=== PATIENT | male | born 1985 | race Caucasian/White ===

== ENCOUNTER 2017-03-16 08:08 | Observation (INO) | payer MEDICAID ==
--- NOTE | 2017-03-16 08:34 | EDM.PDOC ---
ED HPI GENERAL MEDICAL PROBLEM - General Chief Complaint: General Stated Complaint: seizure activity Time Seen by Provider: 03/16/17 08:10 Source of Information: Reports: Family History Limitations: Reports: No Limitations - History of Present Illness INITIAL COMMENTS - FREE TEXT/NARRATIVE: According to father patient has been drinking alcohol for several years now. He has alcoholic hepatitis and has had seizures in the past. Pt had an episode of seizure today morning around 7 PM. Father claims he has not drunk any alcohol for past 2 days. He had seizure today morning and bit his tongue too. Presently in the emergency room, patient is awake and alert. He is very aware of his surrounding. He claims he drinks 1 to 1 1/2 bottle of hard liquor daily.C /o pain and spasms in his arms. 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 He was transferred to [facility] in january of 2016. He was diagnosed with alcoholic hepatitis and reactive elevation of Ferritin. Not on any medications at this time. Onset: Today Onset Date: 03/16/17 Onset Time: 07:00 fingers Pain Score (Numeric/FACES): 4 - Related Data Allergies Allergy/AdvReac Type Severity Reaction Status Date / Time No Known Allergies Allergy Verified 03/16/17 08:26 Home Meds: Home Meds NK [No Known Home Meds] 03/16/17 [History] ED ROS GENERAL - Review of Systems Review Of Systems: See Below Constitutional: Denies: Fever, Chills, Malaise, Weakness HEENT: Denies: Rhinitis, Throat Pain, Throat Swelling Respiratory: Denies: Shortness of Breath, Wheezing, Cough, Sputum Cardiovascular: Denies: Chest Pain, Lightheadedness GI/Abdominal: Denies: Abdominal Pain, Constipation, Diarrhea, Hematochezia, Melena, Nausea, Vomiting : Reports: Discharge. Denies: Dysuria, Flank Pain Musculoskeletal: Reports: Joint Pain. Denies: Back Pain, Leg Pain, Foot Pain, Joint Swelling Skin: Denies: Jaundice, Bruising, Pruritis, Rash Neurological: Denies: Confusion, Dizziness, Headache, Numbness, Paresthesia, Tingling, Tremors, Difficulty Walking, Weakness, Change in Speech, Gait Disturbance ED EXAM, GENERAL - Physical Exam Exam: See Below Exam Limited By: No Limitations General Appearance: Alert, WD/WN, No Apparent Distress, Other (No apparent confusion. Alert and answering questions appropriately) Eye Exam: Bilateral Eye: EOMI, PERRL Ears: Normal External Exam, Normal Canal, Hearing Grossly Normal, Normal TMs Nose: Normal Inspection, Normal Mucosa, No Blood Throat/Mouth: Normal Inspection, Normal Lips, Normal Teeth, Normal Gums, Normal Oropharynx, Normal Voice, No Airway Compromise, Other (tongue bitten, but no acitive bleed at this time.) Head: Atraumatic, Normocephalic Neck: Normal Inspection, Supple, Non-Tender, Full Range of Motion Respiratory/Chest: No Respiratory Distress, Lungs Clear, Normal Breath Sounds, No Accessory Muscle Use, Chest Non-Tender Cardiovascular: Normal Peripheral Pulses, Regular Rate, Rhythm, No Edema, No Gallop, No JVD, No Murmur, No Rub GI/Abdominal: Normal Bowel Sounds, Soft, Non-Tender, No Organomegaly, No Distention, No Abnormal Bruit, No Mass Extremities: Normal Inspection, Normal Range of Motion, Non-Tender, Normal Capillary Refill, No Pedal Edema Neurological: Alert, Oriented, CN II-XII Intact, Normal Cognition, Normal Gait, Normal Reflexes, No Motor/Sensory Deficits Psychiatric: Normal Affect, Normal Mood Skin Exam: Warm, Intact EKG INTERPRETATION EKG Date: 03/16/17 Time: 09:30 Rhythm: NSR Rate (Beats/Min): 112 Steele: Normal P-Wave: Present QRS: Normal ST-T: Normal QT: Normal EKG Interpretation Comments: sinus tachycardia Course - Vital Signs Text/Narrative:: Pt has been very stable in the emergency room. Since he has bee n in the emergency room he is alert and responding appropriately. He might have had a alcoholic withdrawal seizure at home. his ETOH level is zero, for a person who almost binges every other day. His vitals are stable. Lab work done today shows following abnormalities.: his White count is elevated at 19K with neutros of 87 %, this could be reactive elevation. He is asymptomatic. Has not cough, diarrhea, abdominal pain, fever or chills. His chest Xray appears normal. Could be mild dehydration too causing this. His sodium is low at 133, Potassium is 2.8 and chloride of 82, Magnesium of 0.7 and phosphorous of 1.5. His creat is 2.06 with BUN of 19.All these abnormal results could be related to alcoholism and poor nutritional status and dehydration secondary to it. Plan is to correct electrolyte balance. His LFT shows bili of 2.2 and AST of 205 and ALT of 105, which are secondary to chronic alcoholism, and he has alcoholic hepatitis. The cause of his episode of seizure is multifactorial: Alcohol withdrawal, Hypokalemia, Hypomagnesemia. His potassium is down to 2.8, his EKG does not show any acute changes. Last Recorded V/S: Last Vital Signs Temp 98.9 F 03/16/17 08:21 Pulse 123 H 03/16/17 08:45 Resp BP 144/86 H 03/16/17 08:45 Pulse Ox 98 03/16/17 08:45 - Orders/Labs/Meds Orders: Active Orders 24 hr Category Date Time Status Patient Status [ADT] Routine ADT 03/16/17 10:01 Ordered Bedrest Bathroom Privileges [RC] ASDIRECTED Care 03/16/17 10:01 Ordered Cardiac Monitoring [RC] CONTINUOUS Care 03/16/17 10:04 Ordered EKG Documentation Completion [RC] ASDIRECTED Care 03/16/17 09:33 Ordered Height and Weight [RC] UPON Care 03/16/17 10:01 Ordered Intake and Output [RC] QSHIFT Care 03/16/17 10:04 Ordered Oxygen Therapy [RC] PRN Care 03/16/17 10:01 Ordered VTE/DVT Education [RC] Per Unit Routine Care 03/16/17 10:01 Ordered Vital Signs [RC] Q4H Care 03/16/17 10:01 Ordered Regular Diet [DIET] Diet 03/16/17 Lunch Ordered Chest 2V [CR] Stat Exams 03/16/17 09:33 Ordered CBC WITH AUTO DIFF [HEME] Routine Lab 03/17/17 07:00 Ordered COMPREHENSIVE METABOLIC PN,CMP [CHEM] Routine Lab 03/17/17 08:00 Ordered DRUG SCREEN, URINE [URCHEM] Stat Lab 03/16/17 08:34 Ordered MAGNESIUM [CHEM] Routine Lab 03/17/17 07:00 Ordered POTASSIUM,K [CHEM] Routine Lab 03/17/17 07:00 Ordered UA W/MICROSCOPIC [URIN] Stat Lab 03/16/17 08:34 Ordered Magnesium Sulfate/Water [Magnesium Sulfate 2 GM in Med 03/16/17 10:11 Ordered Water 50 ML] 2 gm Premix Bag 1 bag IV ONETIME Pantoprazole [ProTONIX IV] Med 03/16/17 10:15 Ordered 40 mg IV DAILY Sodium Chloride 0.9% [Saline Flush] Med 03/16/17 10:01 Ordered 10 ml FLUSH ASDIRECTED PRN Sodium Chloride 0.9% with KCl [Normal Saline with 40 Med 03/16/17 10:15 Ordered mEq KCl] 1,000 ml IV ASDIRECTED Thiamine [Vitamin B-1] Med 03/16/17 10:09 Once 100 mg IM ONETIME ONE Peripheral IV Insertion Adult [OM.PC] Routine Oth 03/16/17 10:01 Ordered Resuscitation Status Routine Resus Stat 03/16/17 10:01 Ordered Medication Orders Pantoprazole Sodium (Protonix Iv) 40 mg IV DAILY RAF Sodium Chloride (Saline Flush) 10 ml FLUSH ASDIRECTED PRN PRN Reason: Keep Vein Open Labs: Laboratory Tests 03/16/17 03/16/17 03/16/17 Range/Units 08:50 08:50 08:50 WBC 19.1 H (4.0-11.0) K/uL RBC 5.52 (4.50-6.50) M/uL Hgb 17.2 D (13.0-18.0) g/dL Hct 48.3 D (40.0-54.0) % MCV 88 (76-96) fL MCH 31.2 (27.0-32.0) pg MCHC 35.6 H (31.0-35.0) g/dL RDW 13.1 (11.0-16.0) % Plt Count 131 L D (150-400) K/uL MPV 11.6 H (6.0-10.0) fL Neut % (Auto) 86.4 H (45.0-70.0) % Lymph % (Auto) 6.1 L (20.0-40.0) % [place] % (Auto) 7.1 (3.0-10.0) % Eos % (Auto) 0.1 L (1.0-5.0) % Baso % (Auto) 0.3 (0.0-0.5) % Neut # (Auto) 16.49 H (2.00-7.50) K/uL Lymph # (Auto) 1.17 L (1.50-4.00) K/uL [place] # (Auto) 1.35 H (0.20-0.80) K/uL Eos # (Auto) 0.01 L (0.04-0.40) K/uL Baso # (Auto) 0.06 (0.02-0.10) K/uL PT (9.0-11.5) sec INR (1.0-3.5) Sodium 133 L (136-145) mmol/L Potassium 2.8 L* D (3.5-5.1) mmol/L Chloride 82 L* (98-107) mmol/L Carbon Dioxide 33.3 H D (21.0-32.0) mmol/L Anion Gap 20.5 H (5.0-15.0) mmol/L BUN 19 D (8-26) mg/dL Creatinine 2.06 H D (0.70-1.30) mg/dL Est Cr Clr Drug Dosing 57.03 mL/min Estimated GFR (MDRD) 38 L (>60) MLS/MIN BUN/Creatinine Ratio 9.2 (6-25) Glucose 173 H D (74-100) mg/dL Calcium 9.4 (8.5-10.1) mg/dL Phosphorus 1.5 L (2.5-4.9) mg/dL Magnesium 0.7 L (1.8-2.4) mg/dL Total Bilirubin 2.2 H D (0.0-1.0) mg/dL AST 205 H (15-37) U/L ALT 105 H (12-78) U/L Alkaline Phosphatase 75 (46-116) U/L Total Protein 8.7 H (6.4-8.2) g/dL Albumin 4.5 (3.4-5.0) g/dL Globulin 4.2 (2.2-4.2) g/dL Albumin/Globulin Ratio 1.1 (0.8-2.0) Ethyl Alcohol 0.0 (0.0-0.0) mg/dL 03/16/17 Range/Units 08:50 WBC (4.0-11.0) K/uL RBC (4.50-6.50) M/uL Hgb (13.0-18.0) g/dL Hct (40.0-54.0) % MCV (76-96) fL MCH (27.0-32.0) pg MCHC (31.0-35.0) g/dL RDW (11.0-16.0) % Plt Count (150-400) K/uL MPV (6.0-10.0) fL Neut % (Auto) (45.0-70.0) % Lymph % (Auto) (20.0-40.0) % [place] % (Auto) (3.0-10.0) % Eos % (Auto) (1.0-5.0) % Baso % (Auto) (0.0-0.5) % Neut # (Auto) (2.00-7.50) K/uL Lymph # (Auto) (1.50-4.00) K/uL [place] # (Auto) (0.20-0.80) K/uL Eos # (Auto) (0.04-0.40) K/uL Baso # (Auto) (0.02-0.10) K/uL PT 12.7 H D (9.0-11.5) sec INR 1.3 D (1.0-3.5) Sodium (136-145) mmol/L Potassium (3.5-5.1) mmol/L Chloride (98-107) mmol/L Carbon Dioxide (21.0-32.0) mmol/L Anion Gap (5.0-15.0) mmol/L BUN (8-26) mg/dL Creatinine (0.70-1.30) mg/dL Est Cr Clr Drug Dosing mL/min Estimated GFR (MDRD) (>60) MLS/MIN BUN/Creatinine Ratio (6-25) Glucose (74-100) mg/dL Calcium (8.5-10.1) mg/dL Phosphorus (2.5-4.9) mg/dL Magnesium (1.8-2.4) mg/dL Total Bilirubin (0.0-1.0) mg/dL AST (15-37) U/L ALT (12-78) U/L Alkaline Phosphatase (46-116) U/L Total Protein (6.4-8.2) g/dL Albumin (3.4-5.0) g/dL Globulin (2.2-4.2) g/dL Albumin/Globulin Ratio (0.8-2.0) Ethyl Alcohol (0.0-0.0) mg/dL Meds: Medications Generic Name Dose Route Start Last Admin Trade Name Emily PRN Reason Stop Dose Admin Pantoprazole Sodium 40 mg 03/16/17 10:15 Protonix Iv IV DAILY RAF Sodium Chloride 10 ml 03/16/17 10:01 Saline Flush FLUSH ASDIRECTED PRN Keep Vein Open Departure - Departure Time of Disposition: 10:00 Disposition: Refer to Observation Condition: Fair Clinical Impression: Alcoholic hepatitis, Hypokalemia, Hyponatremia, Hypomagnesemia, Hypophosphatemia, Decreased renal function, Seizure - Discharge Information Instructions: Alcohol Use Disorder, Chemical Dependency Referrals: PCP,None [Primary Care Provider] - Forms: ED Department Discharge Additional Instructions: Librium - Problem List & Annotations (1) Alcoholic hepatitis SNOMED Code(s): 683609290 Code(s): K70.10 - ALCOHOLIC HEPATITIS WITHOUT ASCITES Status: Acute Current Visit: Yes (2) Decreased renal function Status: Acute Current Visit: Yes (3) Hypokalemia SNOMED Code(s): 37030474 Code(s): E87.6 - HYPOKALEMIA Status: Acute Current Visit: Yes (4) Hypomagnesemia SNOMED Code(s): 011000635 Code(s): E83.42 - HYPOMAGNESEMIA Status: Acute Current Visit: Yes (5) Hyponatremia SNOMED Code(s): 92712257 Code(s): E87.1 - HYPO-OSMOLALITY AND HYPONATREMIA Status: Acute Current Visit: Yes (6) Hypophosphatemia SNOMED Code(s): 7010536 Code(s): E83.39 - OTHER DISORDERS OF PHOSPHORUS METABOLISM Status: Acute Current Visit: Yes (7) Seizure SNOMED Code(s): 36467097 Code(s): R56.9 - UNSPECIFIED CONVULSIONS Status: Acute Priority: High Current Visit: Yes Onset Date: 12/31/15 - Problem List Review Problem List Initiated/Reviewed/Updated: Yes - My Orders Last 24 Hours: My Active Orders 03/16/17 08:34 DRUG SCREEN, URINE [URCHEM] Stat UA W/MICROSCOPIC [URIN] Stat 03/16/17 09:33 EKG Documentation Completion [RC] ASDIRECTED Chest 2V [CR] Stat 03/16/17 10:01 Patient Status [ADT] Routine Bedrest Bathroom Privileges [RC] ASDIRECTED Height and Weight [RC] UPON Oxygen Therapy [RC] PRN VTE/DVT Education [RC] Per Unit Routine Vital Signs [RC] Q4H Sodium Chloride 0.9% [Saline Flush] 10 ml FLUSH ASDIRECTED PRN Peripheral IV Insertion Adult [OM.PC] Routine Resuscitation Status Routine 03/16/17 10:04 Cardiac Monitoring [RC] CONTINUOUS Intake and Output [RC] QSHIFT 03/16/17 10:09 Thiamine [Vitamin B-1] 100 mg IM ONETIME ONE 03/16/17 10:11 Magnesium Sulfate/Water [Magnesium Sulfate 2 GM in Water 50 ML] 2 gm Premix Bag 1 bag IV ONETIME 03/16/17 10:15 Pantoprazole [ProTONIX IV] 40 mg IV DAILY Sodium Chloride 0.9% with KCl [Normal Saline with 40 mEq KCl] 1,000 ml IV ASDIRECTED 03/16/17 Lunch Regular Diet [DIET] 03/17/17 07:00 CBC WITH AUTO DIFF [HEME] Routine MAGNESIUM [CHEM] Routine POTASSIUM,K [CHEM] Routine 03/17/17 08:00 COMPREHENSIVE METABOLIC PN,CMP [CHEM] Routine - Assessment/Plan Last 24 Hours: My Active Orders 03/16/17 08:34 DRUG SCREEN, URINE [URCHEM] Stat UA W/MICROSCOPIC [URIN] Stat 03/16/17 09:33 EKG Documentation Completion [RC] ASDIRECTED Chest 2V [CR] Stat 03/16/17 10:01 Patient Status [ADT] Routine Bedrest Bathroom Privileges [RC] ASDIRECTED Height and Weight [RC] UPON Oxygen Therapy [RC] PRN VTE/DVT Education [RC] Per Unit Routine Vital Signs [RC] Q4H Sodium Chloride 0.9% [Saline Flush] 10 ml FLUSH ASDIRECTED PRN Peripheral IV Insertion Adult [OM.PC] Routine Resuscitation Status Routine 03/16/17 10:04 Cardiac Monitoring [RC] CONTINUOUS Intake and Output [RC] QSHIFT 03/16/17 10:09 Thiamine [Vitamin B-1] 100 mg IM ONETIME ONE 03/16/17 10:11 Magnesium Sulfate/Water [Magnesium Sulfate 2 GM in Water 50 ML] 2 gm Premix Bag 1 bag IV ONETIME 03/16/17 10:15 Pantoprazole [ProTONIX IV] 40 mg IV DAILY Sodium Chloride 0.9% with KCl [Normal Saline with 40 mEq KCl] 1,000 ml IV ASDIRECTED 03/16/17 Lunch Regular Diet [DIET] 03/17/17 07:00 CBC WITH AUTO DIFF [HEME] Routine MAGNESIUM [CHEM] Routine POTASSIUM,K [CHEM] Routine 03/17/17 08:00 COMPREHENSIVE METABOLIC PN,CMP [CHEM] Routine Assessment:: Seizure Multifactorial Hypokalemia, hyponatremia, Hypomagnesemia and hypophosphatemia Alcoholic hepatitis Plan: The episode of seizure patient had today might be alcohol withdrawal, but he is not having any agitation or confusion in the emergency room. Also he is not having active alcohol tremors. He is alert and oriented. This seizure could be multifactorial due to asso electrolyte abnormalities. Plan is to admit patient for observation. Keep him on alcohol withdrawal protocol. Will correct his electrolyte abnormalities. Started patient on normal saline with 40meq KCL at 125/hr. Also have him on IV magnesium 1gm IV BID. Phosphorus should correct by itself gradually with correction of other electrolytes. He does have altered renal functions, probably dehydration related, With IV hydration the renal function should improve. Will have him on cardiac monitoring. Followup with CBC,CMP, Mag and PO4 level in morning.
[2017-03-16] MEDS ORDERED: Thiamine 200 MG/2 ML MDV IM ONE (10:09)
[2017-03-16] MEDS ORDERED: Magnesium Sulfate/Water 2 GM in Premix Bag 1 BAG IV ONE (10:11)
[2017-03-16] MEDS ORDERED: LORazepam 1 MG Tab ONE (11:09)
[2017-03-16] MEDS: Pantoprazole 40 MG Vial IV SCH (11:12)
[2017-03-16] MEDS: LORazepam 2 MG/ML MDV IVPUSH PRN ×2 (11:13→12:27)
[2017-03-16] MEDS: Sodium Chloride 0.9% with KCl 1,000 ML IV SCH ×2 (12:29→20:00)
[2017-03-16] MEDS: Sodium Chloride 0.9% 10 ML Syringe FLUSH PRN (12:30)
[2017-03-16] MEDS ORDERED: Azithromycin 500 MG Tab PO ONE (13:04)
[2017-03-16] MEDS: Lidocaine 2% Viscous Solution 15 ML Cup PO ONE ×2 (13:11→16:02)
[2017-03-16] MEDS ORDERED: Lidocaine 2% Viscous Solution 15 ML Cup PO ONE (15:56)
[2017-03-16] MEDS ORDERED: Lidocaine 2% Viscous Solution 15 ML Cup ONE (16:02)
[2017-03-17] MEDS: LORazepam 2 MG/ML MDV IVPUSH PRN (03:01)
[2017-03-17] MEDS: Sodium Chloride 0.9% with KCl 1,000 ML IV SCH (04:01)
[2017-03-17] MEDS: Pantoprazole 40 MG Vial IV SCH (07:50)
[2017-03-17] MEDS: Sodium Chloride 0.9% 10 ML Syringe FLUSH PRN (07:50)
[2017-03-17 07:57] VITALS: BP 126/75
[2017-03-17] MEDS ORDERED: Potassium Chloride 10 MEQ Tab.ER PO SCH (08:45)
--- NOTE | 2017-03-17 09:21 | CR ---
DATE OF SERVICE: 03/16/17 CLINICAL DATA: elevated white count PA AND LATERAL CHEST: The heart size is normal. The lungs are clear. No pneumothorax. No pleural effusions. No areas of consolidation. The exam is otherwise negative. IMPRESSION: No evidence of acute intrathoracic disease. [id number] MTDD
--- NOTE | 2017-03-17 11:40 | PCM.DCSUM1 ---
Discharge Summary - Hospital Course Free Text/Narrative:: Pt was admitted post seizure, apparently pt drink 1 and a half bottle of alcohol every other day, was admitted to monitor in hospital environment and also to make sure he does no thave any more seizures or alcohol withdrawl. Pt also had several electorlyte abnormalities on admission. He had hyponatremia, hypokalmeia, hypomagnesemia and hypophosphatemia. So pt was admitted for replenishment of his elcetrolyte too at the same time. Pt recevie IV normal saline with 40meq KCL at 125cc.hr. And Magnesium sulfacte 1gm Iv BID. Pt ws palcedd on Cardiac monitoring and on Ciwwass scoring for alcohol withdrawl. HE basically has needed 4 mg of ativan over 24 hrs. Today patient claims he feels fine, energetic. Also it is 5 days since the last alcohol consumption. His labs are reassuring. His sodium is normalat 135, MAgnesium has improved from 0.7 to 1.5, his potassium is still low at 2.7. His creatinine is back to nromal form 2.06 to 1.05. 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 he calims he will stop drinking alcohol. He is not going through severe withdrawl and it is day 5 since last alcohol consumption. Plan is to discharge patient today as he has been feeling good and is clinically stable and has not had severe withdrawls or seizure. I am sending him home on: Librium 5mg po TID for 1 wk. Kdur 10 MEQ po BID for 1wk MAgnesium oxide 400mg PO BID for 1 wk Omeprazole 40mg PO daily for 1 month for alcoholic gastritis Zithromax 250mg Daily for 4 days Advised to return to clinic in 1 wk for lab work and recheck. Brief History: Pt is alcoholic and had seizure at home on 03/16/17 morning, workup does show alcoholic hepatitis with multiple electrolyte abnormalities. Pt was admitted for correcting his electrolyte abnormalities, and close monitor for seizure and alcohol withdrawal.Kindly see H&P for details. - Discharge Data Discharge Date: 03/17/17 Discharge Disposition: Home, Self-Care 01 Condition: Good - Discharge Diagnosis/Problem(s) (1) Alcoholic hepatitis SNOMED Code(s): 963424513 ICD Code: K70.10 - ALCOHOLIC HEPATITIS WITHOUT ASCITES Status: Acute Current Visit: Yes (2) Decreased renal function Status: Acute Current Visit: Yes (3) Hypokalemia SNOMED Code(s): 84089034 ICD Code: E87.6 - HYPOKALEMIA Status: Acute Current Visit: Yes (4) Hypomagnesemia SNOMED Code(s): 333492381 ICD Code: E83.42 - HYPOMAGNESEMIA Status: Acute Current Visit: Yes (5) Hyponatremia SNOMED Code(s): 50400052 ICD Code: E87.1 - HYPO-OSMOLALITY AND HYPONATREMIA Status: Acute Current Visit: Yes (6) Hypophosphatemia SNOMED Code(s): 9709632 ICD Code: E83.39 - OTHER DISORDERS OF PHOSPHORUS METABOLISM Status: Acute Current Visit: Yes (7) Seizure SNOMED Code(s): 94067210 ICD Code: R56.9 - UNSPECIFIED CONVULSIONS Status: Acute Priority: High Current Visit: Yes Onset Date: 12/31/15 - Patient Instructions Diet: Regular Diet as Tolerated, No Alcoholic Beverages Fluid Restriction: 1500 mL Driving: [address] Today Showering/Bathing: November Shower - Discharge Plan Prescriptions/Med Rec: Azithromycin [Zithromax] 250 mg PO DAILY 4 Days #4 tablet Magnesium Oxide 400 mg PO BID 7 Days #14 tab Omeprazole 40 mg PO DAILY 30 Days #30 cap.sr Potassium Chloride [Klor-Con 10] 10 meq PO BIDMEALS 7 Days #14 tab.er Home Medications: Home Meds Azithromycin [Zithromax] 250 mg PO DAILY 4 Days #4 tablet 03/17/17 [Rx] Magnesium Oxide 400 mg PO BID 7 Days #14 tab 03/17/17 [Rx] Omeprazole 40 mg PO DAILY 30 Days #30 cap.sr 03/17/17 [Rx] Potassium Chloride [Klor-Con 10] 10 meq PO BIDMEALS 7 Days #14 tab.er 03/17/17 [ Rx] Patient Handouts: Alcohol Use Disorder, Chemical Dependency, Seizure, Adult Forms: ED Department Discharge Referrals: PCP,None [Family Provider] - - Discharge Summary/Plan Comment DC Time >30 min.: Yes Discharge Summary/Plan Comment: I am sending him home on: Librium 5mg po TID for 1 wk. Kdur 10 MEQ po BID for 1wk MAgnesium oxide 400mg PO BID for 1 wk Omeprazole 40mg PO daily for 1 month for alcoholic gastritis Zithromax 250mg Daily for 4 days Advised to return to clinic in 1 wk for lab work and recheck. - General Info Date of Service: 03/17/17 Subjective Update: Pt claims that he feel fine today. Has been feeding well. Has not had any seizure and also has no tremors and agitation during the hospital stay. He does c/o mild epigastirc discomfort. No bloody stools or moreno. - Review of Systems General: Denies: Fever, Weakness HEENT: Denies: Headaches, Sinus Congestion, Sore Throat, Visual Changes Pulmonary: Denies: Sputum, Hemoptysis Cardiovascular: Denies: Chest Pain, Lightheadedness Gastrointestinal: Reports: Abdominal Pain (epigatric), Flatus. Denies: Diarrhea , Hematochezia, Melena, Nausea, Vomiting Genitourinary: Denies: Hematuria, Retention Musculoskeletal: Denies: Joint Pain Neurological: Denies: Confusion, Dizziness, Headache, Numbness, Tingling, Tremors, Difficulty Walking, Change in Speech, Gait Disturbance Psychiatric: Denies: Confusion, Depression, Anxiety - Patient Data Vitals - Most Recent: Last Vital Signs Temp 98.2 F 03/17/17 07:56 Pulse 97 03/17/17 07:56 Resp 18 03/17/17 07:56 BP 126/75 03/17/17 07:56 Pulse Ox 95 03/17/17 07:56 Weight - Most Recent: 94.166 kg I&O - Last 24 hours: Intake & Output 03/16/17 03/17/17 03/17/17 22:59 06:59 14:59 Intake Total 1290 2180 Output Total 350 900 Balance 940 1280 Lab Results - Last 24 hrs: Laboratory Results - last 24 hr 03/16/17 03/16/17 03/17/17 Range/Units 14:50 14:50 07:20 WBC 8.9 D (4.0-11.0) K/uL RBC 5.13 (4.50-6.50) M/uL Hgb 16.0 (13.0-18.0) g/dL Hct 45.6 (40.0-54.0) % MCV 89 (76-96) fL MCH 31.2 (27.0-32.0) pg MCHC 35.1 H (31.0-35.0) g/dL RDW 13.0 (11.0-16.0) % Plt Count 84 L D (150-400) K/uL MPV 12.4 H (6.0-10.0) fL Neut % (Auto) 76.2 H (45.0-70.0) % Lymph % (Auto) 14.4 L (20.0-40.0) % [place] % (Auto) 9.0 (3.0-10.0) % Eos % (Auto) 0.2 L (1.0-5.0) % Baso % (Auto) 0.2 (0.0-0.5) % Neut # (Auto) 6.74 (2.00-7.50) K/uL Lymph # (Auto) 1.27 L (1.50-4.00) K/uL [place] # (Auto) 0.80 (0.20-0.80) K/uL Eos # (Auto) 0.02 L (0.04-0.40) K/uL Baso # (Auto) 0.02 (0.02-0.10) K/uL Sodium (136-145) mmol/L Potassium Chloride (98-107) mmol/L Carbon Dioxide (21.0-32.0) mmol/L Anion Gap (5.0-15.0) mmol/L BUN (8-26) mg/dL Creatinine (0.70-1.30) mg/dL Est Cr Clr Drug Dosing mL/min Estimated GFR (MDRD) (>60) MLS/MIN BUN/Creatinine Ratio (6-25) Glucose (74-100) mg/dL Calcium (8.5-10.1) mg/dL Magnesium (1.8-2.4) mg/dL Total Bilirubin (0.0-1.0) mg/dL AST (15-37) U/L ALT (12-78) U/L Alkaline Phosphatase (46-116) U/L Total Protein (6.4-8.2) g/dL Albumin (3.4-5.0) g/dL Globulin (2.2-4.2) g/dL Albumin/Globulin Ratio (0.8-2.0) Urine Color Yellow Urine Appearance Clear (CLEAR) Urine pH 5.5 (5.0-8.0) Ur Specific [place] 1.015 (1.003-1.030) Urine Protein 100 H (NEGATIVE) mg/dL Urine Glucose (UA) Negative (NEGATIVE) mg/dL Urine Ketones 40 H (NEGATIVE) mg/dL Urine Occult Blood Moderate H (NEGATIVE) Urine Nitrite Negative (NEGATIVE) Urine Bilirubin Moderate H (NEGATIVE) Urine Urobilinogen 0.2 (0.2-1.0) E.U./dL Ur Leukocyte Esterase Negative (NEGATIVE) Urine RBC 5-10 H /HPF Urine WBC Not seen /HPF Ur Squamous Epith Cells Rare /HPF Urine Bacteria Rare /HPF Urine Opiates Screen Negative (NEGATIVE) Ur Oxycodone Screen Negative (NEGATIVE) Ur Barbiturates Screen Negative (NEGATIVE) Ur Tricyclics Screen Negative (NEGATIVE) Ur Phencyclidine Scrn Negative (NEGATIVE) Ur Amphetamine Screen Negative (NEGATIVE) U Methamphetamines Scrn Negative (NEGATIVE) U Benzodiazepines Scrn Negative (NEGATIVE) U Cocaine Metab Screen Negative (NEGATIVE) U Marijuana (THC) Screen Negative (NEGATIVE) 03/17/17 03/17/17 Range/Units 07:30 07:30 WBC (4.0-11.0) K/uL RBC (4.50-6.50) M/uL Hgb (13.0-18.0) g/dL Hct (40.0-54.0) % MCV (76-96) fL MCH (27.0-32.0) pg MCHC (31.0-35.0) g/dL RDW (11.0-16.0) % Plt Count (150-400) K/uL MPV (6.0-10.0) fL Neut % (Auto) (45.0-70.0) % Lymph % (Auto) (20.0-40.0) % [place] % (Auto) (3.0-10.0) % Eos % (Auto) (1.0-5.0) % Baso % (Auto) (0.0-0.5) % Neut # (Auto) (2.00-7.50) K/uL Lymph # (Auto) (1.50-4.00) K/uL [place] # (Auto) (0.20-0.80) K/uL Eos # (Auto) (0.04-0.40) K/uL Baso # (Auto) (0.02-0.10) K/uL Sodium 135 L (136-145) mmol/L Potassium Cancelled 2.7 L* Chloride 94 L (98-107) mmol/L Carbon Dioxide 34.2 H (21.0-32.0) mmol/L Anion Gap 9.5 (5.0-15.0) mmol/L BUN 13 D (8-26) mg/dL Creatinine 1.05 D (0.70-1.30) mg/dL Est Cr Clr Drug Dosing 111.88 mL/min Estimated GFR (MDRD) > 60 (>60) MLS/MIN BUN/Creatinine Ratio 12.4 (6-25) Glucose 95 D (74-100) mg/dL Calcium 8.0 L (8.5-10.1) mg/dL Magnesium 1.5 L D (1.8-2.4) mg/dL Total Bilirubin 2.1 H (0.0-1.0) mg/dL AST 225 H (15-37) U/L ALT 94 H (12-78) U/L Alkaline Phosphatase 62 (46-116) U/L Total Protein 7.3 (6.4-8.2) g/dL Albumin 3.6 (3.4-5.0) g/dL Globulin 3.7 (2.2-4.2) g/dL Albumin/Globulin Ratio 1.0 (0.8-2.0) Urine Color Urine Appearance (CLEAR) Urine pH (5.0-8.0) Ur Specific [place] (1.003-1.030) Urine Protein (NEGATIVE) mg/dL Urine Glucose (UA) (NEGATIVE) mg/dL Urine Ketones (NEGATIVE) mg/dL Urine Occult Blood (NEGATIVE) Urine Nitrite (NEGATIVE) Urine Bilirubin (NEGATIVE) Urine Urobilinogen (0.2-1.0) E.U./dL Ur Leukocyte Esterase (NEGATIVE) Urine RBC /HPF Urine WBC /HPF Ur Squamous Epith Cells /HPF Urine Bacteria /HPF Urine Opiates Screen (NEGATIVE) Ur Oxycodone Screen (NEGATIVE) Ur Barbiturates Screen (NEGATIVE) Ur Tricyclics Screen (NEGATIVE) Ur Phencyclidine Scrn (NEGATIVE) Ur Amphetamine Screen (NEGATIVE) U Methamphetamines Scrn (NEGATIVE) U Benzodiazepines Scrn (NEGATIVE) U Cocaine Metab Screen (NEGATIVE) U Marijuana (THC) Screen (NEGATIVE) Med Orders - Current: Current Medications Potassium Chloride/Sodium Chloride (Normal Saline With 40 Meq Kcl) 1,000 mls @ 125 mls/hr IV ASDIRECTED [facility] Last Admin: 03/17/17 04:01 Dose: 125 mls/hr Magnesium Sulfate/Dextrose 1 (gm/ Premix) 100 mls @ 50 mls/hr IV Q1H [facility] Stop: 03/17/17 12:14 Last Admin: 03/17/17 08:53 Dose: 50 mls/hr Lorazepam (Ativan) 0 mg IVPUSH Q4H PRN; Protocol PRN Reason: Withdrawal Symptoms Last Admin: 03/17/17 03:01 Dose: 1 mg Pantoprazole Sodium (Protonix Iv) 40 mg IV DAILY [facility] Last Admin: 03/17/17 07:50 Dose: 40 mg Potassium Chloride (Klor-Con 10) 10 meq PO BIDMEALS [facility] Last Admin: 03/17/17 08:56 Dose: 10 meq Sodium Chloride (Saline Flush) 10 ml FLUSH ASDIRECTED PRN PRN Reason: Keep Vein Open Last Admin: 03/17/17 07:50 Dose: 10 ml Discontinued Medications Azithromycin (Zithromax) 500 mg PO ONETIME ONE Stop: 03/16/17 13:05 Last Admin: 03/16/17 13:16 Dose: 500 mg Magnesium Sulfate 2 gm/ Premix 50 mls @ 25 mls/hr IV ONETIME ONE Stop: 03/16/17 12:10 Last Admin: 03/16/17 11:17 Dose: Not Given Lidocaine HCl (Xylocaine 2% Viscous) 15 ml PO ONETIME ONE Stop: 03/16/17 13:05 Last Admin: 03/16/17 16:02 Dose: 15 ml Lidocaine HCl (Xylocaine 2% Viscous) 15 ml PO ONETIME ONE Stop: 03/16/17 15:57 Last Admin: 03/17/17 07:08 Dose: Not Given Lidocaine HCl (Xylocaine 2% Viscous) Confirm Administered Dose 15 ml .ROUTE .STK -MED ONE Stop: 03/16/17 16:03 Last Admin: 03/17/17 07:07 Dose: Not Given Lorazepam (Ativan) Confirm Administered Dose 1 mg .ROUTE .STK-MED ONE Stop: 03/16/17 11:10 Last Admin: 03/16/17 11:17 Dose: Not Given Thiamine HCl (Vitamin B-1) 100 mg IM ONETIME ONE Stop: 03/16/17 10:10 Last Admin: 03/16/17 11:12 Dose: 100 mg - Exam General: Reports: Alert, Oriented HEENT: Reports: Pupils Equal, Pupils Reactive, EOMI, Mucous Membr. Moist/[place] Neck: Reports: Supple Lungs: Reports: Clear to Auscultation, Normal Respiratory Effort Cardiovascular: Reports: Regular Rate, Regular Rhythm GI/Abdominal Exam: Normal Bowel Sounds, Soft, No Organomegaly, No Distention, No Abnormal Bruit, No Mass, Pelvis Stable, Tender (mild epigastirc discomfort). No: Guarding, Rigid, Rebound Back Exam: Reports: Normal Inspection, Full Range of Motion Extremities: Normal Inspection, Normal Range of Motion, Non-Tender, No Pedal Edema, Normal Capillary Refill *Q Meaningful Use (DIS) - VTE *Q VTE Criteria *Q: - Stroke *Q Stroke Criteria *Q: - AMI *Q AMI Criteria *Q:
== END 2017-03-17 12:15 | disposition home or self-care (01) ==
LOC: LB.ED 08:08 → LB.MS 10:00
PROVIDERS: ADMIT Family Medicine; ATTEND Family Medicine
DX: K70.10 Alcoholic hepatitis without ascites (principal); R56.9 Unspecified convulsions; N28.89 Other specified disorders of kidney and ureter; E87.6 Hypokalemia; E83.42 Hypomagnesemia; E87.1 Hypo-osmolality and hyponatremia; E83.39 Other disorders of phosphorus metabolism
CPT/HCPCS: 36415; 71020; 80053; 80307; 81001; 83735; 84100; 85025; 85610; 93005; 96365; 96366; 96367; 96372; 96374; 96375; 96376; 99285; A9270; C9113; G0378; G0480; J2060; J3411; J3475; J3480; J7050

== ENCOUNTER 2017-12-10 07:31 | Observation (INO) | payer MEDICAID ==
[2017-12-10] MEDS ORDERED: LORazepam 2 MG/ML SDV IVPUSH ONE (07:50)
[2017-12-10] MEDS ORDERED: Pantoprazole 40 MG Vial IVPUSH ONE (07:50)
[2017-12-10] MEDS ORDERED: Pantoprazole 40 MG Vial ONE (08:05)
[2017-12-10] MEDS ORDERED: LORazepam 2 MG/ML SDV ONE (08:05)
--- NOTE | 2017-12-10 08:28 | EDM.PDOC ---
ED HPI GENERAL MEDICAL PROBLEM - General Chief Complaint: Gastrointestinal Problem Stated Complaint: throwing up Time Seen by Provider: 12/10/17 08:00 Source of Information: Reports: Patient History Limitations: Reports: No Limitations - History of Present Illness INITIAL COMMENTS - FREE TEXT/NARRATIVE: pt is a 31 year old male who presents to emergency room as he beltran been vomiting and cannot keep any food down since last night. Apparently patient has chronic history of alcohol abuse. He claims he was clean for the past 3 month, and for past 2 days has been drinking a lot. He has drunk 1.75 litres of Vodka over past 24 hrs and has been having epigastric pain with pain radiating to his mid back. He did try drinking Vodka this morning to see if this help, and started to vomit. The pain is dull and constant and at times get sharp. No abdominal bloating, no heart prado or dyspepsia.Also has been vomiting all night , vomitus basically has been clear.. No hemetemisis or moreno. Pt claims he feels shaky and weak. no fever or chills. No cough, wheezing, chest pain or shortness of breath. No other complaints. Onset Date: 12/09/17 Location: Reports: Abdomen Quality: Reports: Ache Severity: Moderate Improves with: Reports: None Worsens with: Reports: None Associated Symptoms: Reports: Nausea/Vomiting, Weakness. Denies: Confusion, Chest Pain, Cough, Fever/Chills, Headaches, Rash, Seizure, Shortness of Breath, Syncope Bilat Flank Pain Score (Numeric/FACES): 7 - Related Data Allergies Allergy/AdvReac Type Severity Reaction Status Date / Time No Known Allergies Allergy Verified 12/10/17 07:40 Home Meds: Home Meds traZODone HCl [Trazodone HCl] 50 mg PO QPM 12/10/17 [History] Past Medical History Respiratory History: Reports: Asthma Psychiatric History: Reports: Addiction, Anxiety - Past Surgical History HEENT Surgical History: Reports: EDWAR Social & Family History - Caffeine Use Caffeine Use: Reports: Energy Drinks, Soda ED ROS GENERAL - Review of Systems Review Of Systems: See Below Constitutional: Reports: Weakness. Denies: Fever, Chills, Fatigue HEENT: Denies: Rhinitis, Throat Pain, Throat Swelling, Vision Change Respiratory: Denies: Shortness of Breath, Pleuritic Chest Pain, Cough, Sputum Cardiovascular: Denies: Chest Pain, Lightheadedness Endocrine: Denies: Fatigue GI/Abdominal: Reports: Abdominal Pain, Flatus, Nausea, Vomiting. Denies: Black Stool, Constipation, Diarrhea, Hematemesis, Hematochezia, Melena : Denies: Dysuria, Frequency Musculoskeletal: Reports: Back Pain (midback). Denies: Joint Pain, Joint Swelling Skin: Denies: Bruising, Pruritis, Rash ED EXAM, GENERAL - Physical Exam Exam: See Below Exam Limited By: No Limitations General Appearance: Alert, WD/WN, No Apparent Distress, Anxious Eye Exam: Bilateral Eye: EOMI, PERRL Ears: Normal External Exam, Normal Canal, Hearing Grossly Normal, Normal TMs Ear Exam: Bilateral Ear: Auricle Normal, Canal Normal, TM normal Nose: Normal Inspection, Normal Mucosa, No Blood Throat/Mouth: Normal Inspection, Normal Lips, Normal Teeth, Normal Gums, Normal Oropharynx, Normal Voice, No Airway Compromise Head: Atraumatic, Normocephalic Neck: Normal Inspection, Supple, Non-Tender, Full Range of Motion Respiratory/Chest: No Respiratory Distress, Lungs Clear, Normal Breath Sounds, No Accessory Muscle Use, Chest Non-Tender Cardiovascular: Normal Peripheral Pulses, No Edema, No Gallop, No JVD, No Murmur , No Rub, Tachycardia Peripheral Pulses: 2+: Carotid (L), Carotid (R), Radial (L), Radial (R) GI/Abdominal: Normal Bowel Sounds, Soft, No Organomegaly, Tender (tender in the epigastric region. No gaurding or rebound). No: Guarding, Rigid, Rebound Back Exam: Normal Inspection, Full Range of Motion, NT Extremities: Normal Inspection, Normal Range of Motion, Non-Tender, Normal Capillary Refill, No Pedal Edema Neurological: Alert, Oriented, CN II-XII Intact, Normal Cognition, Normal Gait, Normal Reflexes Psychiatric: Normal Affect, Anxious Skin Exam: Warm, Intact Course - Vital Signs Text/Narrative:: Pt is her in the emergency room wretching and vomiting. HE did receive zofran 4mg. Also is very anxious, he did receive Ativan 1mg IV. HE was started on litre of Normal saline bolus. His CBC shows white count of 15.9, which appears like inflammatory change form his vomiting. His hemoglobin is stable at 16.1. His creat is 1.69 could be secondary to alcoholic dehydration. His AST is 101. ETOH is 10, Lipase is normal. Pt reassured that he has acute alcoholic gastritis from excessive alcohol consumption. Pt has had issues with alcohol abuse all his life. He does want to go in for inpatient Detox program. Plan is to admit patinet for observation and hydration him well and also start him on Banana bag iv. I have reassured patient that when he is clinically stable , we will arrange for him to be in Alcohol detox program. Last Recorded V/S: Last Vital Signs Temp 99.1 F 12/10/17 08:39 Pulse 122 H 12/10/17 08:39 Resp 20 12/10/17 08:39 BP 131/80 12/10/17 08:39 Pulse Ox 95 12/10/17 08:39 - Orders/Labs/Meds Orders: Active Orders 24 hr Category Date Time Status Patient Status [ADT] Routine ADT 12/10/17 08:56 Ordered Bedrest Bathroom Privileges [RC] ASDIRECTED Care 12/10/17 08:56 Ordered Height and Weight [RC] UPON Care 12/10/17 08:56 Ordered Intake and Output [RC] QSHIFT Care 12/10/17 08:57 Ordered Oxygen Therapy [RC] PRN Care 12/10/17 08:56 Ordered VTE/DVT Education [RC] Per Unit Routine Care 12/10/17 08:56 Ordered Vital Signs [RC] Q4H Care 12/10/17 08:56 Ordered Nothing per Oral Now Diet [DIET] Diet 12/10/17 Breakfast Ordered BASIC METABOLIC PANEL,BMP [CHEM] Routine Lab 12/10/17 16:00 Ordered DRUG SCREEN, URINE [URCHEM] Stat Lab 12/10/17 08:22 Ordered MVI, Adult with Vitamin K [Infuvite Adult] 10 ml Med 12/10/17 08:45 Active Thiamine [Vitamin B-1] 100 mg Folic Acid 1 mg Magnesium Sulfate [Magnesium Sulfate 50%] 3 gm Sodium Chloride 0.9% [Normal Saline] 1,000 ml IV ASDIRECTED Ondansetron [Zofran] Med 12/10/17 08:56 Ordered 4 mg IV Q6H PRN Pantoprazole [ProTONIX] Med 12/11/17 07:00 Ordered 40 mg PO ACBREAKFAST Sodium Chloride 0.9% [Normal Saline] 1,000 ml Med 12/10/17 08:45 Active IV ASDIRECTED Sucralfate [Carafate] Med 12/10/17 11:00 Ordered 1 gm PO TIDAC Resuscitation Status Routine Resus Stat 12/10/17 08:56 Ordered Medication Orders Multivitamins/Minerals 10 ml/Thiamine HCl 100 mg/ Folic Acid 1 mg/ Magnesium Sulfate 3 gm/ Sodium Chloride 1,017.2 mls @ 150 mls/hr IV ASDIRECTED RAF Last Admin: 12/10/17 08:55 Dose: 150 mls/hr Sodium Chloride (Normal Saline) 1,000 mls @ 999 mls/hr IV ASDIRECTED RAF Ondansetron HCl (Zofran) 4 mg IV Q6H PRN PRN Reason: Nausea/Vomiting Labs: Laboratory Tests 12/10/17 12/10/17 12/10/17 Range/Units 08:20 08:20 08:21 WBC 15.9 H D (4.0-11.0) K/uL RBC 5.19 (4.50-6.50) M/uL Hgb 16.1 (13.0-18.0) g/dL Hct 46.0 (40.0-54.0) % MCV 89 (76-96) fL MCH 31.0 (27.0-32.0) pg MCHC 35.0 (31.0-35.0) g/dL RDW 12.7 (11.0-16.0) % Plt Count 203 D (150-400) K/uL MPV 10.1 H (6.0-10.0) fL Neut % (Auto) 89.5 H (45.0-70.0) % Lymph % (Auto) 5.3 L (20.0-40.0) % [place] % (Auto) 5.0 (3.0-10.0) % Eos % (Auto) 0.0 L (1.0-5.0) % Baso % (Auto) 0.2 (0.0-0.5) % Neut # (Auto) 14.22 H (2.00-7.50) K/uL Lymph # (Auto) 0.85 L (1.50-4.00) K/uL [place] # (Auto) 0.79 (0.20-0.80) K/uL Eos # (Auto) 0.00 L (0.04-0.40) K/uL Baso # (Auto) 0.03 (0.02-0.10) K/uL Sodium 138 (136-145) mmol/L Potassium 3.1 L (3.5-5.1) mmol/L Chloride 88 L* (98-107) mmol/L Carbon Dioxide 17.3 L D (21.0-32.0) mmol/L Anion Gap 35.8 H (5.0-15.0) mmol/L BUN 14 D (8-26) mg/dL Creatinine 1.69 H D (0.70-1.30) mg/dL Est Cr Clr Drug Dosing TNP Estimated GFR (MDRD) 48 L (>60) MLS/MIN BUN/Creatinine Ratio 8.3 (6-25) Glucose 153 H (74-100) mg/dL Calcium 9.2 (8.5-10.1) mg/dL Total Bilirubin 2.3 H (0.0-1.0) mg/dL AST 101 H (15-37) U/L ALT 62 (12-78) U/L Alkaline Phosphatase 65 (46-116) U/L Total Protein 9.1 H (6.4-8.2) g/dL Albumin 4.8 (3.4-5.0) g/dL Globulin 4.3 H (2.2-4.2) g/dL Albumin/Globulin Ratio 1.1 (0.8-2.0) Lipase 152 D (73-393) U/L TSH, Ultra Sensitive (0.358-3.740) uIU/mL Ethyl Alcohol 10.0 H (0.0-0.0) mg/dL 12/10/17 Range/Units 08:22 WBC (4.0-11.0) K/uL RBC (4.50-6.50) M/uL Hgb (13.0-18.0) g/dL Hct (40.0-54.0) % MCV (76-96) fL MCH (27.0-32.0) pg MCHC (31.0-35.0) g/dL RDW (11.0-16.0) % Plt Count (150-400) K/uL MPV (6.0-10.0) fL Neut % (Auto) (45.0-70.0) % Lymph % (Auto) (20.0-40.0) % [place] % (Auto) (3.0-10.0) % Eos % (Auto) (1.0-5.0) % Baso % (Auto) (0.0-0.5) % Neut # (Auto) (2.00-7.50) K/uL Lymph # (Auto) (1.50-4.00) K/uL [place] # (Auto) (0.20-0.80) K/uL Eos # (Auto) (0.04-0.40) K/uL Baso # (Auto) (0.02-0.10) K/uL Sodium (136-145) mmol/L Potassium (3.5-5.1) mmol/L Chloride (98-107) mmol/L Carbon Dioxide (21.0-32.0) mmol/L Anion Gap (5.0-15.0) mmol/L BUN (8-26) mg/dL Creatinine (0.70-1.30) mg/dL Est Cr Clr Drug Dosing Estimated GFR (MDRD) (>60) MLS/MIN BUN/Creatinine Ratio (6-25) Glucose (74-100) mg/dL Calcium (8.5-10.1) mg/dL Total Bilirubin (0.0-1.0) mg/dL AST (15-37) U/L ALT (12-78) U/L Alkaline Phosphatase (46-116) U/L Total Protein (6.4-8.2) g/dL Albumin (3.4-5.0) g/dL Globulin (2.2-4.2) g/dL Albumin/Globulin Ratio (0.8-2.0) Lipase (73-393) U/L TSH, Ultra Sensitive 0.905 D (0.358-3.740) uIU/mL Ethyl Alcohol (0.0-0.0) mg/dL Meds: Medications Generic Name Dose Route Start Last Admin Trade Name Freq PRN Reason Stop Dose Admin Multivitamins/Minerals 10 ml/ 1,017.2 mls @ 150 mls/hr 12/10/17 08:45 08:55 Thiamine HCl 100 mg/ Folic IV 150 mls/hr Acid 1 mg/ Magnesium Sulfate 3 ASDIRECTED RAF Administration gm/ Sodium Chloride Sodium Chloride 1,000 mls @ 999 mls/hr 12/10/17 08:45 Normal Saline IV ASDIRECTED RAF Ondansetron HCl 4 mg 12/10/17 08:56 Zofran IV Q6H PRN Nausea/Vomiting Discontinued Medications Generic Name Dose Route Start Last Admin Trade Name Emily PRN Reason Stop Dose Admin Lorazepam 1 mg 12/10/17 07:50 12/10/17 08:04 Ativan IVPUSH 12/10/17 07:51 1 mg ONETIME ONE Administration Lorazepam Confirm 12/10/17 08:05 12/10/17 08:47 Ativan Administered 12/10/17 08:06 Not Given Dose 2 mg .ROUTE .STK-MED ONE Pantoprazole Sodium 40 mg 12/10/17 07:50 12/10/17 08:08 Protonix Iv IVPUSH 12/10/17 07:51 40 mg ONETIME ONE Administration Pantoprazole Sodium Confirm 12/10/17 08:05 12/10/17 08:51 Protonix Iv Administered 12/10/17 08:06 Not Given Dose 40 mg .ROUTE .STK-MED ONE Departure - Departure Time of Disposition: 09:00 Disposition: Refer to Observation Condition: Fair Clinical Impression: Alcoholic gastritis - Discharge Information Referrals: Hermes Roberto MD [Primary Care Provider] - Forms: ED Department Discharge - Problem List & Annotations (1) Decreased renal function Status: Acute Current Visit: No (2) Alcoholic gastritis SNOMED Code(s): 3463585 Code(s): K29.20 - ALCOHOLIC GASTRITIS WITHOUT BLEEDING Status: Acute Current Visit: Yes - Problem List Review Problem List Initiated/Reviewed/Updated: Yes - My Orders Last 24 Hours: My Active Orders 12/10/17 08:22 DRUG SCREEN, URINE [URCHEM] Stat 12/10/17 08:45 MVI, Adult with Vitamin K [Infuvite Adult] 10 ml Thiamine [Vitamin B-1] 100 mg Folic Acid 1 mg Magnesium Sulfate [Magnesium Sulfate 50%] 3 gm Sodium Chloride 0.9% [Normal Saline] 1,000 ml IV ASDIRECTED Sodium Chloride 0.9% [Normal Saline] 1,000 ml IV ASDIRECTED 12/10/17 08:56 Patient Status [ADT] Routine Bedrest Bathroom Privileges [RC] ASDIRECTED Height and Weight [RC] UPON Oxygen Therapy [RC] PRN VTE/DVT Education [RC] Per Unit Routine Vital Signs [RC] Q4H Ondansetron [Zofran] 4 mg IV Q6H PRN Resuscitation Status Routine 12/10/17 08:57 Intake and Output [RC] QSHIFT 12/10/17 11:00 Sucralfate [Carafate] 1 gm PO TIDAC 12/10/17 16:00 BASIC METABOLIC PANEL,BMP [CHEM] Routine 12/10/17 Breakfast Nothing per Oral Now Diet [DIET] 12/11/17 07:00 Pantoprazole [ProTONIX] 40 mg PO ACBREAKFAST - Assessment/Plan Last 24 Hours: My Active Orders 12/10/17 08:22 DRUG SCREEN, URINE [URCHEM] Stat 12/10/17 08:45 MVI, Adult with Vitamin K [Infuvite Adult] 10 ml Thiamine [Vitamin B-1] 100 mg Folic Acid 1 mg Magnesium Sulfate [Magnesium Sulfate 50%] 3 gm Sodium Chloride 0.9% [Normal Saline] 1,000 ml IV ASDIRECTED Sodium Chloride 0.9% [Normal Saline] 1,000 ml IV ASDIRECTED 12/10/17 08:56 Patient Status [ADT] Routine Bedrest Bathroom Privileges [RC] ASDIRECTED Height and Weight [RC] UPON Oxygen Therapy [RC] PRN VTE/DVT Education [RC] Per Unit Routine Vital Signs [RC] Q4H Ondansetron [Zofran] 4 mg IV Q6H PRN Resuscitation Status Routine 12/10/17 08:57 Intake and Output [RC] QSHIFT 12/10/17 11:00 Sucralfate [Carafate] 1 gm PO TIDAC 12/10/17 16:00 BASIC METABOLIC PANEL,BMP [CHEM] Routine 12/10/17 Breakfast Nothing per Oral Now Diet [DIET] 12/11/17 07:00 Pantoprazole [ProTONIX] 40 mg PO ACBREAKFAST Assessment:: Alcoholic gastritis Dehydration with elevated Creatinine Plan: Pt is her in the emergency room wretching and vomiting. HE did receive zofran 4mg. Also is very anxious, he did receive Ativan 1mg IV. HE was started on litre of Normal saline bolus. His CBC shows white count of 15.9, which appears like inflammatory change form his vomiting. His hemoglobin is stable at 16.1. His creat is 1.69 could be secondary to alcoholic dehydration. His AST is 101. ETOH is 10, Lipase is normal. Pt reassured that he has acute alcoholic gastritis from excessive alcohol consumption. Pt has had issues with alcohol abuse all his life. He does want to go in for inpatient Detox program. Plan is to admit patinet for observation and hydration him well and also start him on Banana bag iv. I have reassured patient that when he is clinically stable , we will arrange for him to be in Alcohol detox program.
[2017-12-10] MEDS ORDERED: MVI, Adult with Vitamin K 10 ML, Thiamine 100 MG, Folic Acid 1 MG in Sodium Chloride 0.... IV SCH ×4 (08:45)
[2017-12-10] MEDS ORDERED: MVI, Adult with Vitamin K 10 ML, Thiamine 100 MG, Folic Acid 1 MG, Magnesium Sulfate 3 ... IV SCH ×5 (08:45)
[2017-12-10] MEDS ORDERED: Sodium Chloride 0.9% 1,000 ML IV SCH (08:45)
[2017-12-10] MEDS ORDERED: Ondansetron 4 MG/2 ML SDV IV PRN (08:56)
[2017-12-10] MEDS ORDERED: Acetaminophen 325 MG Tab PO PRN (09:43)
[2017-12-10] MEDS ORDERED: LORazepam 2 MG/ML SDV IVPUSH PRN (09:44)
[2017-12-10] MEDS: Sucralfate 1 GM Tab PO SCH ×2 (11:30→17:12)
[2017-12-10] MEDS ORDERED: Adenosine 12 MG/4 ML SDV ONE (14:19)
[2017-12-10] MEDS: NS + KCl 20mEq/L 1,000 ML IV SCH (17:51)
[2017-12-10] MEDS: LORazepam 1 MG Tab ONE ×2 (21:46→22:59)
[2017-12-10] MEDS ORDERED: LORazepam 1 MG Tab ONE (23:36)
[2017-12-11] MEDS: NS + KCl 20mEq/L 1,000 ML IV SCH ×2 (00:23→07:22)
[2017-12-11] MEDS ORDERED: Pantoprazole 40 MG Tab.CR PO SCH (07:00)
[2017-12-11] MEDS: Sucralfate 1 GM Tab PO SCH (07:34)
[2017-12-11 08:25] VITALS: BP 134/85
--- NOTE | 2017-12-11 08:48 | PCM.DCSUM1 ---
Discharge Summary - Hospital Course Free Text/Narrative:: Pt was admitted with diagnosis of Alcoholic gastritis with dehydration and intractable vomiting. Pt was kept NPO , IV bolus of NS and IV banana bag. He was also kept of zofran for nausea.Pt has not had any vomiting over the time of his hospital stay.Pt's CBC shows white count of 15 K and his CMP showed creat of 1.7. His elevated white count appeared like inflammatory reaction, and his elevated creat could be secondary to dehydration. Repeat BMP in the evening of admission showed improving BMP and creat was down to 1. His potassium was low at 3. Hence NS with 20 MEQ of KCl was started at 125c/hr. Pt has had uneventful night. Pt claims he feel much better today. no abdominal pain or discomfort. Has not has any episodes of vomiting. He was started on clear liquid diet. Pt has been tolerating it well. Hence patient has been planned for discharge. Plan is to have him on prilosec 40mg daily and carafate for 2 wks. Advised to stressed on avoiding alcohol consumption. Pt does have elevated AST from chronic ETOH abuse. Pt prefers to have outpatient alcohol detox program. He has bee advised to followup with [facility] social welfare research worker and social welfare research worker has been notified. Followup in clinic in 1 wk for recheck. HPI Initial Comments: Preented with acute epigastric pain and intractable vomiting after Binge drinking on ETOH Brief History: Kindly see H&P - Discharge Data Discharge Date: 12/11/17 Discharge Disposition: Home, Self-Care 01 Condition: Good - Discharge Diagnosis/Problem(s) (1) Decreased renal function Status: Acute Current Visit: No (2) Alcoholic gastritis SNOMED Code(s): 0174046 ICD Code: K29.20 - ALCOHOLIC GASTRITIS WITHOUT BLEEDING Status: Acute Current Visit: Yes - Patient Instructions Diet: Regular Diet as Tolerated Fluid Restriction: 1500 mL Activity: As Tolerated Driving: May Drive Today Showering/Bathing: May Shower - Discharge Plan Prescriptions/Med Rec: Omeprazole 40 mg PO DAILY #30 cap.sr Sucralfate 1 gm PO TID #45 tablet Home Medications: Home Meds traZODone HCl [Trazodone HCl] 50 mg PO QPM 12/10/17 [History] Omeprazole 40 mg PO DAILY #30 cap.sr 12/11/17 [Rx] Sucralfate 1 gm PO TID #45 tablet 12/11/17 [Rx] Patient Handouts: Chemical Dependency, Sucralfate tablets, Finding Treatment for Addiction, Alcohol Withdrawal, [id number], Omeprazole tablets (OTC) Forms: ED Department Discharge Referrals: Hermes Roberto MD [Primary Care Provider] - - Discharge Summary/Plan Comment DC Time >30 min.: Yes - General Info Date of Service: 12/11/17 Functional Status: Reports: Pain Controlled, Tolerating Diet, Ambulating, Urinating - Review of Systems General: Denies: Fever, Weakness, Fatigue, Malaise HEENT: Denies: Post Nasal Drip, Sinus Congestion, Sore Throat Pulmonary: Denies: Shortness of Breath, Sputum, Wheezing Cardiovascular: Denies: Chest Pain, Lightheadedness Gastrointestinal: Reports: Flatus. Denies: Abdominal Pain, Decreased Appetite, Diarrhea, Nausea, Vomiting Genitourinary: Denies: Dysuria, Frequency Musculoskeletal: Denies: Joint Pain, Joint Swelling Skin: Denies: Bruising, Pruritis, Rash Neurological: Denies: Confusion, Dizziness, Headache, Numbness, Tingling Psychiatric: Denies: Depression, Anxiety - Patient Data Vitals - Most Recent: Last Vital Signs Temp 97.8 F 12/11/17 08:00 Pulse 97 12/11/17 08:00 Resp 16 12/11/17 04:00 BP 134/85 12/11/17 08:00 Pulse Ox 96 12/11/17 08:00 Weight - Most Recent: 91.989 kg I&O - Last 24 hours: Intake & Output 12/10/17 12/11/17 12/11/17 22:59 06:59 14:59 Intake Total 1000 1920 Output Total 1100 Balance 1000 820 Lab Results - Last 24 hrs: Laboratory Results - last 24 hr 12/10/17 12/10/17 12/10/17 Range/Units 08:20 08:21 08:22 Sodium 138 (136-145) mmol/L Potassium 3.1 L (3.5-5.1) mmol/L Chloride 88 L* (98-107) mmol/L Carbon Dioxide 17.3 L D (21.0-32.0) mmol/L Anion Gap 35.8 H (5.0-15.0) mmol/L BUN 14 D (8-26) mg/dL Creatinine 1.69 H D (0.70-1.30) mg/dL Est Cr Clr Drug Dosing TNP Estimated GFR (MDRD) 48 L (>60) MLS/MIN BUN/Creatinine Ratio 8.3 (6-25) Glucose 153 H (74-100) mg/dL Calcium 9.2 (8.5-10.1) mg/dL Total Bilirubin 2.3 H (0.0-1.0) mg/dL AST 101 H (15-37) U/L ALT 62 (12-78) U/L Alkaline Phosphatase 65 (46-116) U/L Total Protein 9.1 H (6.4-8.2) g/dL Albumin 4.8 (3.4-5.0) g/dL Globulin 4.3 H (2.2-4.2) g/dL Albumin/Globulin Ratio 1.1 (0.8-2.0) Lipase 152 D (73-393) U/L TSH, Ultra Sensitive 0.905 D (0.358-3.740) uIU/mL Urine Opiates Screen (NEGATIVE) Ur Oxycodone Screen (NEGATIVE) Urine Methadone Screen (NEGATIVE) U Acetaminophen Screen (NEGATIVE) Ur Barbiturates Screen (NEGATIVE) Ur Tricyclics Screen (NEGATIVE) Ur Phencyclidine Scrn (NEGATIVE) Ur Amphetamine Screen (NEGATIVE) U Methamphetamines Scrn (NEGATIVE) U Benzodiazepines Scrn (NEGATIVE) U Cocaine Metab Screen (NEGATIVE) U Marijuana (THC) Screen (NEGATIVE) Ethyl Alcohol 10.0 H (0.0-0.0) mg/dL 18 12/10/17 Range/Units 08:56 16:00 Sodium 137 (136-145) mmol/L Potassium 3.0 L (3.5-5.1) mmol/L Chloride 93 L (98-107) mmol/L Carbon Dioxide 27.9 D (21.0-32.0) mmol/L Anion Gap 19.1 H (5.0-15.0) mmol/L BUN 14 (8-26) mg/dL Creatinine 1.09 D (0.70-1.30) mg/dL Est Cr Clr Drug Dosing 104.58 Estimated GFR (MDRD) > 60 (>60) MLS/MIN BUN/Creatinine Ratio 12.8 (6-25) Glucose 106 H D (74-100) mg/dL Calcium 8.2 L (8.5-10.1) mg/dL Total Bilirubin (0.0-1.0) mg/dL AST (15-37) U/L ALT (12-78) U/L Alkaline Phosphatase (46-116) U/L Total Protein (6.4-8.2) g/dL Albumin (3.4-5.0) g/dL Globulin (2.2-4.2) g/dL Albumin/Globulin Ratio (0.8-2.0) Lipase (73-393) U/L TSH, Ultra Sensitive (0.358-3.740) uIU/mL Urine Opiates Screen Negative (NEGATIVE) Ur Oxycodone Screen Negative (NEGATIVE) Urine Methadone Screen Negative (NEGATIVE) U Acetaminophen Screen Negative (NEGATIVE) Ur Barbiturates Screen Negative (NEGATIVE) Ur Tricyclics Screen Negative (NEGATIVE) Ur Phencyclidine Scrn Negative (NEGATIVE) Ur Amphetamine Screen Negative (NEGATIVE) U Methamphetamines Scrn Negative (NEGATIVE) U Benzodiazepines Scrn Negative (NEGATIVE) U Cocaine Metab Screen Negative (NEGATIVE) U Marijuana (THC) Screen Negative (NEGATIVE) Ethyl Alcohol (0.0-0.0) mg/dL OWEN Results - Last 24 hrs: Microbiology 12/10/17 09:30 MRSA Surveillance Culture - Final Nares, Unspecified NO MRSA ISOLATED Med Orders - Current: Current Medications Acetaminophen (Tylenol) 650 mg PO Q6H PRN PRN Reason: Pain Last Admin: 12/10/17 09:57 Dose: 650 mg Multivitamins/Minerals 10 ml/Thiamine HCl 100 mg/ Folic Acid 1 mg/ Magnesium Sulfate 3 gm/ Sodium Chloride 1,017.2 mls @ 150 mls/hr IV ASDIRECTED RAF Last Admin: 12/10/17 08:55 Dose: 150 mls/hr Sodium Chloride (Normal Saline) 1,000 mls @ 999 mls/hr IV ASDIRECTED RAF Last Admin: 12/10/17 09:25 Dose: 500 mls/hr Potassium Chloride/Sodium Chloride (Normal Saline With 20 Meq Kcl) 1,000 mls @ 150 mls/hr IV ASDIRECTED RAF Last Admin: 12/11/17 07:22 Dose: 150 mls/hr Lorazepam (Ativan) 1 mg IVPUSH Q6H PRN PRN Reason: Agitation Last Admin: 12/10/17 09:58 Dose: 1 mg Ondansetron HCl (Zofran) 4 mg IV Q6H PRN PRN Reason: Nausea/Vomiting Last Admin: 12/10/17 10:04 Dose: 4 mg Pantoprazole Sodium (Protonix) 40 mg PO ACBREAKFAST [facility] Last Admin: 12/11/17 07:34 Dose: 40 mg Sucralfate (Carafate) 1 gm PO TIDAC RAF Last Admin: 12/11/17 07:34 Dose: 1 gm Discontinued Medications Adenosine (Adenocard) Confirm Administered Dose 24 mg .ROUTE .STK-MED ONE Stop: 12/10/17 14:20 Last Admin: 12/10/17 15:52 Dose: Not Given Lorazepam (Ativan) 1 mg IVPUSH ONETIME ONE Stop: 12/10/17 07:51 Last Admin: 12/10/17 08:04 Dose: 1 mg Lorazepam (Ativan) Confirm Administered Dose 2 mg .ROUTE .STK-MED ONE Stop: 12/10/17 08:06 Last Admin: 12/10/17 08:47 Dose: Not Given Lorazepam (Ativan) Confirm Administered Dose 1 mg .ROUTE .STK-MED ONE Stop: 12/10/17 21:47 Last Admin: 12/10/17 22:59 Dose: 1 mg Lorazepam (Ativan) Confirm Administered Dose 1 mg .ROUTE .STK-MED ONE Stop: 12/10/17 23:37 Last Admin: 12/11/17 00:19 Dose: Not Given Pantoprazole Sodium (Protonix Iv) 40 mg IVPUSH ONETIME ONE Stop: 12/10/17 07:51 Last Admin: 12/10/17 08:08 Dose: 40 mg Pantoprazole Sodium (Protonix Iv) Confirm Administered Dose 40 mg .ROUTE .STK -MED ONE Stop: 12/10/17 08:06 Last Admin: 12/10/17 08:51 Dose: Not Given - Exam General: Reports: Alert, Oriented HEENT: Reports: Pupils Equal, Pupils Reactive, EOMI, Mucous Membr. Moist/[place] Neck: Reports: Supple Lungs: Reports: Clear to Auscultation, Normal Respiratory Effort Cardiovascular: Reports: Regular Rate, Regular Rhythm GI/Abdominal Exam: Normal Bowel Sounds, Soft, Non-Tender, No Organomegaly, No Distention, No Abnormal Bruit, No Mass, Pelvis Stable Extremities: Normal Inspection, Normal Range of Motion, Non-Tender, No Pedal Edema, Normal Capillary Refill Skin: Reports: Warm, Dry, Intact
== END 2017-12-11 09:05 | disposition home or self-care (01) ==
LOC: LB.ED 07:31 → LB.MS 08:56
PROVIDERS: ADMIT Family Medicine; ATTEND Family Medicine
DX: K29.20 Alcoholic gastritis without bleeding (principal); E86.0 Dehydration; F10.10 Alcohol abuse, uncomplicated; Z79.899 Other long term (current) drug therapy
CPT/HCPCS: 36415; 80048; 80053; 80307; 83690; 84443; 85025; 96374; 96375; 99284-25; A9270-GY; C9113; G0480; J2060; J2405; J3480; J7030